=== PATIENT | female | born 1980 | race African-American/Black ===

== ENCOUNTER → 2016-09-10 | Outpatient (CLI) | payer OTHER ==
--- NOTE | ~2016-09-10 | CR63 ---
[facility]. [facility] A Service of [facility] [place] [facility] RADIOLOGY TEXT RESULTS PATIENT: JAMES MONTANA LOCATION: [facility] : 78 UNIT #: [id number] AGE: [address]: Brandy Alanis SEX: F ORDER DR: [id number] [place] [id number] MR#: [id number] Acc #: [id number] NAME: JAMES MONTANA : 1980 SEX: F STUDY DATE/TIME: 09/10/2016 14:45 UNIT: [facility] ROOM: STUDY DESCRIPTION: CR Chest 2 View Attending Physician: Brandy Alanis A.P.R.N. Referring Physician: Brandy Alanis A.P.R.N. Ordering Physician: Brandy Alanis A.P.R.N. Primary Care Physician: Brandy Alanis A.P.R.N. MEDICAL IMAGING REPORT This report is preliminary unless electronic signature is present. EXAM PA and lateral chest INDICATIONS Shortness of breath for 1 month. COMPARISON STUDIES No comparisons. FINDINGS The lungs are well expanded. There is no acute airspace consolidation. Heart size is normal. Degenerative changes thoracic spine. IMPRESSION No active disease. Dictated by... Aldo Qureshi M.D. THIS IS AN ELECTRONICALLY VERIFIED REPORT Aldo Qureshi M.D. at 09/11/2016 7:33 AM PAULA/dann TD: 09/10/2016 22:42 JOB #: [id number] MEDICAL IMAGING REPORT Page 1 of 1
== END | disposition home or self-care (01) ==
LOC: SRAD 14:40
DX: R06.02 Shortness of breath (principal)
CPT/HCPCS: 71020